=== PATIENT | male | born 1950 | race Caucasian/White ===

== ENCOUNTER 2017-09-22 02:36 | Emergency (ER) | payer OTHER, MEDICAID ==
[2017-09-22] MEDS ORDERED: diphenhydrAMINE 25 MG CAP PO ONE (03:28)
[2017-09-22] MEDS ORDERED: FAMOTIDINE 20 MG TAB PO ONE (03:28)
--- NOTE | 2017-09-22 03:33 | EDPHY ---
H & P Stated Complaint: rash on butt & bi-lat hand swelling Time Seen by Provider: 09/22/17 02:43 HPI/ROS: HPI The patient presents with 2 days of bilateral hand itching and swelling as well as buttocks itching. His symptoms started slowly and have gotten progressively worse. There is no pain. He started taking penicillin about 1 week ago for a dental procedure. He is not taking any other new medications. He has been living at his current place for the last 3 months. He is not using any new lotions or soaps. He does not have any swelling of his legs. He does not have any shortness of breath, difficulty swallowing, abdominal pain or vomiting. Yet a similar reaction after using and nicotine patch many years ago. REVIEW OF SYSTEMS Constitutional: No fever, no chills. Eyes: No discharge. ENT: No sore throat. Cardiovascular: No chest pain, no palpitations. Respiratory: No cough, no shortness of breath. Gastrointestinal: No abdominal pain, no vomiting. Genitourinary: No hematuria. Musculoskeletal: No back pain. Skin: Positive for rashes. Neurological: No headache. PMHx: CHF, hypertension, CAD status post CABG, ichthyosis Soc Hx: Lives in a hotel of some sore PHYSICAL General Appearance: Alert, no distress Eyes: Pupils equal and round no pallor or injection ENT, Mouth: Mucous membranes moist Respiratory: There are no retractions, lungs are clear to auscultation Cardiovascular: Regular rate and rhythm Gastrointestinal: Abdomen is soft and non-tender, no masses, bowel sounds normal Neurological: A&O, moves all extremities Skin: Warm and dry, hands bilaterally are erythematous and slightly edematous with urticarial rash on forearms, bilateral buttocks with urticarial rash Musculoskeletal: Neck is supple non tender Extremities: symmetrical, full range of motion Psychiatric: Patient is oriented X 3, there is no agitation Source: Patient Exam Limitations: No limitations - Personal History Current Tetanus/Diphtheria Vaccine: Unsure Current Tetanus Diphtheria and Acellular Pertussis (TDAP): Unsure Tetanus Vaccine Date: 2005 - Medical/Surgical History Hx Asthma: No Hx Chronic Respiratory Disease: Yes Hx Diabetes: No Hx Cardiac Disease: Yes Hx Renal Disease: No Hx Cirrhosis: No Hx Alcoholism: No Hx HIV/AIDS: No Hx Splenectomy or Spleen Trauma: No Other PMH: Congestive heart failure, CABG x2 vessels with SVG, MAZE, VF Arrest, HTN, Valve repair with prosthetic valve, AFIB 10/2009, BIPOLAR, depression, 2013 sepsis, icthyosis, 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 - Social History Smoking Status: Current every day smoker Constitutional: Initial Vital Signs Temperature (C) 37 C 09/22/17 02:43 Heart Rate 68 09/22/17 02:43 Respiratory Rate 16 09/22/17 02:43 Blood Pressure 155/85 H 09/22/17 02:43 O2 Sat (%) 94 09/22/17 02:43 O2 Delivery Mode Coates Allergies/Adverse Reactions: NICOTINE PATCH Allergy (Uncoded 07/21/14 10:48) Home Medications: Medication Instructions Recorded Simvastatin 40 mg PO HS 04/09/12 PARoxetine HCL [Paxil 30mg (*)] 30 mg PO BID 04/24/13 carBAMazepine [Carbamazepine] 300 mg PO BID 04/29/13 Aspirin [Aspirin 81mg (*)] 81 mg PO DAILY 10/25/13 Cholecalciferol Vit D3 [Vitamin D3 1,000 units PO DAILY 10/25/13 (*)] Cyanocobalamin [Vitamin B12 (*)] 1,000 mcg PO DAILY 10/25/13 Acetaminophen [Tylenol ES 500 mg 500 - 1,000 mg PO Q6 PRN 07/21/14 (*)] Metoprolol Tartrate [Lopressor 25 12.5 mg PO BID 07/21/14 mg (*)] guaiFENesin/CODEINE PHOS 10 ml PO Q6 PRN #120 udcup 07/22/14 [Robitussin AC] diphenhydrAMINE HCL [Benadryl] 25 mg PO TID PRN #30 capsule 09/22/17 Medical Decision Making Differential Diagnosis: 67-year-old male with multiple medical problems, currently taking penicillin for a dental procedure presents with bilateral hand itchiness and redness and swelling as well as buttock rash. On exam he has urticaria. He does not have any other signs of allergic reactions such is uvular or posterior pharyngeal edema, wheezing, shortness of breath, vomiting. Plan for treatment here with Benadryl and Pepcid. I will hold steroids as the patient has multiple other medical comorbidities. I have advised him to stop taking penicillin and take Benadryl around the clock until he is feeling better. Differential diagnoses considered include urticaria, allergic reaction, anaphylaxis. Departure - Departure Disposition: Home, Routine, Self-Care Clinical Impression: Urticaria Condition: Good Instructions: Urticaria (ED) Additional Instructions: Your rash on her bottom and the swelling in your hands is an allergic reaction. I think this is a reaction to penicillin. Please stop taking penicillin. You should take Benadryl 25 mg every 6 hr as needed until your symptoms improve. Referrals: Patient,NotPresent [Primary Care Provider] - As per Instructions Prescriptions: diphenhydrAMINE HCL [Benadryl] 25 mg PO TID PRN #30 capsule PRN Reason: Rash
[2017-09-22 03:54] VITALS: BP 108/82
== END 2017-09-22 03:51 | disposition home or self-care (01) ==
LOC: EDUNIT#
DX: L50.9 Urticaria, unspecified (principal); I11.0 Hypertensive heart disease with heart failure; I50.9 Heart failure, unspecified; I25.810 Atherosclerosis of coronary artery bypass graft(s) without angina pectoris; F17.200 Nicotine dependence, unspecified, uncomplicated; Z79.82 Long term (current) use of aspirin